=== PATIENT | male | born 1985 | race African-American/Black ===

== ENCOUNTER → 2019-05-02 | Outpatient (CLI) | payer OTHER | END | disposition home or self-care (01) | LOC: CT 09:10 | DX: C34.90 Malignant neoplasm of unspecified part of unspecified bronchus or lung (principal); Z98.890 Other specified postprocedural states | CPT/HCPCS: 71250 ==

== ENCOUNTER 2019-05-05 10:26 | Emergency (ER) | payer OTHER ==
[~2019-05-05] VITALS: Ht 170.2 cm; Wt 74.8 kg
[2019-05-05 11:21] LABS: Basophils # (auto) 0 uL; Basophils % (auto) 1.1 % (0.0-2.0); Eosinophils # (auto) 0.1 uL; Eosinophils % (auto) 1.9 % (0.0-7.0); Hematocrit 43.2 % (41.0-53.0); Lymphocytes # (auto) 1.3 uL; Lymphocytes % (auto) 33.2 % (10.0-50.0); Mean Corpuscular Hemoglobin 27.5 pg (28.0-32.0); Mean Corpuscular Hgb Conc. 32.5 g/dL (32.0-36.0); Mean Corpuscular Volume 84.5 fL (80.0-100.0); Monocytes # (auto) 0.4 uL; Monocytes % (auto) 10.6 % (0.0-12.0); Neutrophils # (auto) 2.1 uL; Neutrophils % (auto) 53.2 % (37.0-80.0); Nucleated Red Blood Cells % 0.2 %; Platelet Count (auto) 265 10^3/uL (140-450); Red Cell Distribution Width 13.4 % (11.8-14.3); White Blood Cell 3.9 10^3/uL (4.4-10.8)
[2019-05-05 11:38] LABS: Alanine Aminotransferase 51 U/L (16-61); Albumin 3.3 g/dL (3.4-5.0); Anion Gap 6 (5-15); Aspartate Aminotransferase 33 U/L (15-37); Blood Urea Nitrogen 11 mg/dL (7-18); Calcium 8.2 mg/dL (8.5-10.1); Carbon Dioxide 25 mmol/L (21-32); Chloride 111 mmol/L (98-107); Glucose 101 mg/dL (74-106); Potassium 4.1 mmol/L (3.5-5.1); Sodium 142 mmol/L (136-145)
[2019-05-05 11:42] LABS: INR 1.06 (0.9-1.15); Partial Thromboplastin Time 28.2 sec (23.64-32.05)
[2019-05-05 11:43] LABS: Alkaline Phosphatase 49 U/L (45-117); BUN/Creatinine Ratio 11.3; Bilirubin, Total 0.4 mg/dL (0.2-1.0); GFR African American 113 mL/min; GFR Non-African American 93 mL/min; Total Protein 7.3 g/dL (6.4-8.2)
[2019-05-05] MEDS ORDERED: NITROGLYCERIN 0.4 MG SL TAB SL ONE (11:45)
[2019-05-05] MEDS ORDERED: ASPirin 81 mg TAB PO ONE (11:45)
[2019-05-05 15:00] VITALS: BP 109/80
== END 2019-05-05 15:29 | disposition home or self-care (01) ==
LOC: EDBD 10:26 → ER 10:30 → EEVIPCON 10:30 → ER 15:29
DX: R07.89 Other chest pain (principal); I10 Essential (primary) hypertension
CPT/HCPCS: 36415; 71045; 80053; 83880; 84484; 85025; 85610; 85730; 93005

== ENCOUNTER 2019-05-30 19:02 | Emergency (ER) | payer OTHER ==
[~2019-05-30] VITALS: Ht 170.2 cm; Wt 72.6 kg
[2019-05-30] MEDS ORDERED: HYDROcodone-ACET 5/325MG TAB PO ONE (21:15)
[2019-05-31 01:00] VITALS: BP 114/76
== END 2019-05-31 02:26 | disposition home or self-care (01) ==
LOC: EDBD 19:02 → ER 19:02
DX: S16.1XXA Strain of muscle, fascia and tendon at neck level, initial encounter (principal); S39.012A Strain of muscle, fascia and tendon of lower back, initial encounter; M62.838 Other muscle spasm; I10 Essential (primary) hypertension; Z85.118 Personal history of other malignant neoplasm of bronchus and lung; W17.89XA Other fall from one level to another, initial encounter; Y93.89 Activity, other specified; Y99.8 Other external cause status; Y92.148 Other place in prison as the place of occurrence of the external cause
CPT/HCPCS: 72125; 72131; 94761